=== PATIENT | female | born 1990 | race Caucasian/White ===

== ENCOUNTER 2023-07-20 00:10 | Inpatient (IN) | payer BC ==
[2023-07-20 00:41] VITALS: BMI 27.0
[2023-07-20] MEDS ORDERED: hydrALAZINE 20 MG/ML VIAL SLOW IVP PRN ×2 (01:05→03:23)
[2023-07-20] MEDS ORDERED: Methylergonovine 0.2 MG/ML VIAL IM PRN (03:23)
[2023-07-20] MEDS ORDERED: Promethazine HCl 25 MG/ML VIAL IM PRN ×2 (03:23→10:06)
[2023-07-20] MEDS ORDERED: Tranexamic Acid 1,000 MG/10 ML VIAL IVP PRN (03:23)
[2023-07-20] MEDS ORDERED: Diphenoxylate HCl/Atropine Tablet PO PRN (03:23)
[2023-07-20] MEDS ORDERED: Ondansetron PF 4 MG/2 ML Vial IVP PRN ×2 (03:23→10:06)
[2023-07-20] MEDS ORDERED: Misoprostol 200 MCG TAB PR PRN (03:23)
[2023-07-20] MEDS ORDERED: fentaNYL 50 mcg/mL 1 mL Vial SLOW IVP PRN (03:23)
[2023-07-20] MEDS ORDERED: Carboprost 250 MCG/ML AMP IM PRN (03:23)
[2023-07-20] MEDS ORDERED: Acetaminophen 500 MG TAB PO PRN (03:23)
[2023-07-20] MEDS ORDERED: Docusate 100 MG CAP PO PRN (03:23)
[2023-07-20] MEDS ORDERED: Oxytocin 30 units/NS 500 ML 500 ML IV SCH ×3 (03:30→09:30)
[2023-07-20] MEDS ORDERED: Bupivacaine 0.25% HCL 30 ML VIAL ONE (08:00)
[2023-07-20] MEDS ORDERED: Ibuprofen 800 MG TAB PO PRN (09:21)
[2023-07-20] MEDS ORDERED: Lidocaine 1% (PF) 30 ML VIAL SC PRN (09:21)
[2023-07-20] MEDS ORDERED: fentaNYL/Ropivacaine Epidural 100 ML ONE (09:51)
[2023-07-20] MEDS ORDERED: Moisturizing Cream (Eucerin) 113 GM JAR TOP PRN (10:06)
[2023-07-20] MEDS ORDERED: Acetaminophen 325 MG TAB PO PRN (10:06)
[2023-07-20] MEDS ORDERED: Naloxone HCl 0.4 mg/ml Vial IVP PRN ×2 (10:06)
[2023-07-20] MEDS ORDERED: diphenhydrAMINE 50 MG/ML VIAL IVP PRN (10:06)
[2023-07-20] MEDS ORDERED: ePHEDrine Sulfate 50 MG/10 ML VIAL SLOW IVP PRN (10:06)
[2023-07-20] MEDS ORDERED: Lactated Ringer's 500 ML IV PRN (10:06)
[2023-07-20] MEDS ORDERED: Communication Order-Pharmacy FS SCH (10:15)
[2023-07-20] MEDS ORDERED: fentaNYL 2 mcg/Ropivacaine 0.2% Epidural 100 ML CADD EPIDURAL SCH (10:15)
[2023-07-20 10:26] LABS: Hematocrit 30.8 % (34.9-44.5); Hemoglobin 10.3 g/dL (12.0-15.5); Mean Corpuscular HGB CONC 33.4 g/dL (32.0-36.0); Mean Corpuscular Hemoglobin 27.5 pg (27.0-33.0); Mean Corpuscular Volume 82.4 fl (81.6-98.3); Mean Platelet Volume 9.6 fl (7.4-10.4); Platelet Count 170 10x3/uL (150-450); RBC Distribution Width 14.6 % (11.5-14.5); Red Blood Cell (RBC) Count 3.74 10x6/uL (3.90-5.03); White Blood Cell (WBC) Count 8.9 10x3/uL (3.5-10.5)
[2023-07-20] MEDS ORDERED: Dexmedetomidine 200 MCG/2 ML VIAL ONE (11:37)
[2023-07-20 12:24] LABS: Syphilis Antibody Nonreactive (Nonreactive); Syphilis Antibody Index 0.07 S/CO (<1.00 Non-Reactive)
[2023-07-20 12:25] LABS: HBSAg Index 0.14 S/CO (0-0.99); Hep B Surf Ag - L&D Non-Reactive S/CO (NonReactive)
[2023-07-20] MEDS: Lactated Ringer's 1,000 ML IV SCH ×2 (20:09→20:10)
[2023-07-20] MEDS: Ibuprofen 800 MG TAB PO SCH (21:52)
[2023-07-20] MEDS: Docusate 100 MG CAP PO SCH (21:52)
[2023-07-20] MEDS ORDERED: Benzocaine-Menthol 82.5 ML CAN TOP PRN (22:12)
[2023-07-21] MEDS: Ibuprofen 800 MG TAB PO SCH ×2 (05:23→14:26)
[2023-07-21] MEDS: Docusate 100 MG CAP PO SCH (09:18)
[2023-07-21 11:48] VITALS: BP 124/69; TEMP 99.1
== END 2023-07-21 19:40 | disposition home or self-care (01) | DRG 805 ==
LOC: CSHLD/OP 00:10 → CSHLD 04:43 → OBSVTOIN 09:21 → CSHPP 19:20
PROVIDERS: ADMIT Obstetrics & Gynecology; ATTEND Obstetrics & Gynecology
PROC: 10E0XZZ Delivery of Products of Conception, External Approach (ICD-10-PCS; principal; 2023-07-20)
PROC: 0HQ9XZZ Repair Perineum Skin, External Approach (ICD-10-PCS; 2023-07-20)
PROC: 10907ZC Drainage of Amniotic Fluid, Therapeutic from Products of Conception, Via Natural or Artificial Opening (ICD-10-PCS; 2023-07-20)
DX: O26.643 Intrahepatic cholestasis of pregnancy, third trimester (principal); K83.1 Obstruction of bile duct; Z37.0 Single live birth; Z3A.37 37 weeks gestation of pregnancy; O70.0 First degree perineal laceration during delivery; Z88.0 Allergy status to penicillin; Z88.8 Allergy status to other drugs, medicaments and biological substances; Z86.16 Personal history of COVID-19; Z90.89 Acquired absence of other organs
CPT/HCPCS: 51702; 85027; 86780; 86850; 86900; 86901; 87340; 99285; J2590; S0020